=== PATIENT | male | born 1995 | race Caucasian/White ===

== ENCOUNTER 2017-09-16 16:16 | Emergency (ER) | payer BC, OTHER ==
[2017-09-16 16:36] VITALS: BP 132/82; PULSE 77; TEMP 98.2; BMI 29.0
--- NOTE | 2017-09-16 16:44 | PDOC ---
History of Present Illness - General History Source: Patient Exam Limitations: No Limitations - History of Present Illness Initial Comments: 09/16/17 16:49 The patient is a 21 year old male, left hand dominant, with no significant past medical history who presents to the ED for evaluation of left wrist pain s/p hitting the back of his left hand on a wall while "swatting a bug" about 20 days ago. The patient states he initially thought his wrist was just sore, however, has been unable to lift +3lbs in his left hand without exacerbating his left wrist pain. The patient reports the pain to his distal ulnar region with radiation to the "middle" of the dorsum fo left hand. He reports turning his left wrist outward (supination), as well as left wrist flexion, exacerbates his pain and describes this pain as "burning in the wrist." He denies any swelling or bruising following the injury. Allergies: NKDA <Naz Lopez - Last Filed: 09/16/17 16:57> <Santiago Ross - Last Filed: 09/16/17 17:29> - General Chief Complaint: Injury Stated Complaint: LEFT WRIST INJURY Time Seen by Provider: 09/16/17 16:43 Past History <Naz Lopez - Last Filed: 09/16/17 16:57> - Past Medical History COPD: No Psychiatric Problems: Yes (ANXIETY) - Immunization History Immunization Up to Date: Yes - Suicide/Smoking/Psychosocial Hx Smoking History: Never smoked Have you smoked in the past 12 months: No Information on smoking cessation initiated: No Hx Alcohol Use: Yes (RARE) Drug/Substance Use Hx: Yes (MARIJUANA) Substance Use Type: Alcohol, Marijuana <Santiago Ross - Last Filed: 09/16/17 17:29> - Past Medical History Allergies/Adverse Reactions: Allergies Allergy/AdvReac Type Severity Reaction Status Date / Time No Known Allergies Allergy Verified 09/16/17 16:17 Home Medications: Ambulatory Orders Escitalopram Oxalate [Lexapro -] 10 mg PO DAILY 09/16/17 Review of Systems - Review of Systems Able to Perform ROS?: Yes Is the patient limited [place] proficient: No Constitutional: No: Chills, Fever, Weakness Musculoskeletal: Yes: Joint Pain (left wrist pain). No: Back Pain, Joint Swelling, Joint Stiffness Integumentary: No: Bruising, Erythema, Lesions, Rash Neurological: No: Numbness, Paresthesia, Tingling, Weakness All Other Systems: Reviewed and Negative <Naz Lopez - Last Filed: 09/16/17 16:57> *Physical Exam - Vital Signs Last Vital Signs Temp Pulse Resp BP Pulse Ox 98.2 F 77 16 132/82 99 09/16/17 16:17 09/16/17 16:17 09/16/17 16:17 09/16/17 16:17 09/16/17 16:17 - Physical Exam Comments: 09/16/17 16:57 GENERAL: Well developed, well nourished. Awake and alert x3 . No acute distress. HEENT: Normocephalic, atraumatic. PERRLA, EOMI. No conjunctival pallor. Sclera are non- icteric. Moist mucous membranes. Oropharynx is clear. NECK: Supple. Full ROM. No JVD. Carotid pulses 2+ and symmetric, without bruits. No thyromegaly. No lymphadenopathy. MUSCULOSKELETAL (+) left wrist tenderness. Normal range of motion at all joints. No bony deformities. No CVA tenderness. EXTREMITIES: (+) LUE: Pulses full and symmetric, good cap refill, no deficits, no snuffbox tenderness, +mild ttp over left distal ulna and lateral aspect of left distal radius, no swelling, erythema, or increased warmth. No ecchymosis. +left wrist pain is aggravated with flexion and supination of the left wrist joint. No cyanosis. No clubbing. No edema. No calf tenderness. SKIN: Warm and dry. Normal capillary refill. No rashes. No jaundice. NEUROLOGICAL: Alert, awake, appropriate. Cranial nerves 2-12 intact. No motor deficits in the upper extremities and lower extremities. Normoreflexic in the upper and lower extremities. Normal speech. Gait is normal without ataxia. PSYCHIATRIC: Cooperative. Good eye contact. Appropriate mood and affect. <Naz Lopez - Last Filed: 09/16/17 16:57> - Vital Signs Last Vital Signs Temp Pulse Resp BP Pulse Ox 98.2 F 77 16 132/82 99 09/16/17 16:17 09/16/17 16:17 09/16/17 16:17 09/16/17 16:17 09/16/17 16:17 <Santiago Ross - Last Filed: 09/16/17 17:29> *DC/Admit/Observation/Transfer - Attestations Scribe Attestion: 09/16/17 16:56 Documentation prepared by Naz Lopez, acting as pediatric medical assistant for Santiago Jones MD <Naz Lopez - Last Filed: 09/16/17 16:57> - Discharge Dispostion Admit: No <Santiago Ross - Last Filed: 09/16/17 17:29> Diagnosis at time of Disposition: Wrist sprain Qualifiers: Encounter type: initial encounter Laterality: left Qualified Code(s): S63.502A - Unspecified sprain of left wrist, initial encounter - Discharge Dispostion Disposition: HOME Condition at time of disposition: Improved - Referrals Referrals: Jayce Winchester MD [Staff Physician] - 1 week - Patient Instructions Printed Discharge Instructions: DI for Wrist Sprain Additional Instructions: Rest ice and elevation Advil or Motrin. Use Velcro splint as directed at night while asleep and during the day when convenient. Consider seeing an orthopedist for further evaluation and treatment , as well as possible physical therapy prescription.
== END 2017-09-16 17:35 | disposition home or self-care (01) ==
LOC: FER 16:16
DX: S63.502A Unspecified sprain of left wrist, initial encounter (principal); W22.8XXA Striking against or struck by other objects, initial encounter; Y93.89 Activity, other specified; Y92.410 Unspecified street and highway as the place of occurrence of the external cause
CPT/HCPCS: 73110-TC-LT; 99281-25

== ENCOUNTER 2018-08-08 10:31 | Emergency (ER) | payer BC, OTHER ==
[2018-08-08 10:45] VITALS: TEMP 99; BMI 32.7
[2018-08-08 10:52] LABS: PH,URINE 5.5 (4.5-8); URINE APPEARANCE Clear; URINE BILIRUBIN 1+ (NEGATIVE); URINE COLOR Yellow; URINE GLUCOSE (UA) Negative (NEGATIVE); URINE KETONE Negative (NEGATIVE); URINE LEUK ESTERASE Negative (NEGATIVE); URINE NITRITE Negative (NEGATIVE); URINE PROTEIN 1+ (NEGATIVE); URINE UROBILINOGEN 0.2 (0.2-1.0)
[2018-08-08] MEDS ORDERED: ACETAMINOPHEN 1000 MG/100 ML VIAL (NON FORMULARY) IVPB ONE (11:16)
[2018-08-08] MEDS ORDERED: SODIUM CHLORIDE 1,000 ML IV STA (11:16)
--- NOTE | 2018-08-08 11:20 | PDOC ---
History of Present Illness - General Chief Complaint: Pain Stated Complaint: RIGHT ABD PAIN Time Seen by Provider: 08/08/18 10:40 - History of Present Illness Initial Comments: 08/08/18 11:16 22 M with no significant PMH presents to ED with RLQ pain. Pt states that he first noticed it last weekend. Was not doing anything at the time. The next day , he was helping someone push a heavy object and felt the pain worsen. He denies seeing or feeling any protruding masses in his abdomen. Denies N/V. Pt states that the pain has been constant since then. Denies any radiation of the pain to his groin or back. Denies F/C. No dysuria or hematuria. No scrotal pain. Past History - Past Medical History Allergies/Adverse Reactions: Allergies Allergy/AdvReac Type Severity Reaction Status Date / Time No Known Allergies Allergy Verified 08/08/18 10:39 Home Medications: Ambulatory Orders NK [No Known Home Medication] 08/08/18 COPD: No Psychiatric Problems: Yes (ANXIETY) - Immunization History Immunization Up to Date: Yes - Suicide/Smoking/Psychosocial Hx Smoking History: Never smoked Have you smoked in the past 12 months: No Hx Alcohol Use: Yes (OCCASIONAL) Drug/Substance Use Hx: Yes (MARIJUANA) Substance Use Type: Alcohol, Marijuana Review of Systems - Review of Systems Comments:: 08/08/18 11:18 GENERAL/CONSTITUTIONAL: No fever or chills. No weakness. HEAD, EYES, EARS, NOSE AND THROAT: No change in vision. No ear pain or discharge. No sore throat. CARDIOVASCULAR: No chest pain, no shortness of breath, no loss of consciousness RESPIRATORY: No cough, wheezing, or hemoptysis. GASTROINTESTINAL: + RLQ pain, No nausea, vomiting, diarrhea or constipation. GENITOURINARY: No dysuria, frequency, or change in urination. MUSCULOSKELETAL: No joint or muscle swelling or pain. No neck or back pain. SKIN: No rash NEUROLOGIC: No vertigo, no change in strength/sensation. ENDOCRINE: No increased thirst. No abnormal weight change. HEMATOLOGIC/LYMPHATIC: No anemia, easy bleeding, or history of blood clots. ALLERGIC/IMMUNOLOGIC: No hives or skin allergy. *Physical Exam - Vital Signs Last Vital Signs Temp Pulse Resp BP Pulse Ox 99.0 F 80 16 132/90 99 08/08/18 10:39 08/08/18 10:39 08/08/18 10:39 08/08/18 10:39 08/08/18 10:39 - Physical Exam Comments: 08/08/18 11:19 GENERAL: Awake, alert, and fully oriented, in no acute distress. HEAD: No signs of trauma EYES: PERRLA, EOMI, sclera anicteric, conjunctiva clear ENT: Auricles normal inspection, hearing grossly normal, nares patent, oropharynx clear without exudates. Moist mucosa NECK: Nontender, no stepoffs, Normal ROM, supple, no lymphadenopathy, JVD, or masses LUNGS: Breath sounds equal, clear to auscultation bilaterally. No wheezes, and no crackles HEART: Regular rate and rhythm, normal S1 and S2, no murmurs, rubs or gallops ABDOMEN: Soft, nontender, normoactive bowel sounds. No guarding, no rebound. No masses : Normal scrotum, no masses, no tenderness, normal lay, normal cremasteric reflex EXTREMITIES: Normal range of motion, no edema. No clubbing or cyanosis. No cords, erythema, or tenderness NEUROLOGICAL: Cranial nerves II through XII intact. 5/5 strength and sensation in all extremities, Normal speech, normal gait, normal cerebellar function SKIN: Warm, Dry, normal turgor, no rashes or lesions noted. ED Treatment Course - LABORATORY CBC & Chemistry Diagram: 08/08/18 11:35 08/08/18 11:35 - ADDITIONAL ORDERS Additional order review: Laboratory Results 08/08/18 10:45 Urine Color Yellow Urine Appearance Clear Urine pH 5.5 Ur Specific [place] 1.025 Urine Protein 1+ H Urine Glucose (UA) Negative Urine Ketones Negative Urine Blood Trace-intact H Urine Nitrite Negative Urine Bilirubin 1+ H Urine Urobilinogen 0.2 Ur Leukocyte Esterase Negative - RADIOLOGY Radiology Studies Ordered: Category Date Time Status ABDOMEN & PELVIS CT WITH CONTR [CT] Stat CT Scan 08/08/18 11:15 Ordered Medical Decision Making - Medical Decision Making 08/08/18 11:19 22 M with RLQ pain x 6 days. Abdomen is benign on exam but given location of pain, will r/o appy. Pt with no evidence of torsion on exam. No palpable inguinal or abdominal hernias. Also consider kidney stone, though no CVAT on exam and no flank pain reported. - Labs, UA - CTAP 08/08/18 14:31 Labs notable for elevated lipase, otherwise normal. CT unremarkable. Pt reassessed - has no epigastric tenderness or pain. Has not vomited. PO challenged in ED with apple sauce and water, which pt tolerated well. Denies any change in his pain. No nausea/vomiting. I have low suspicion that pt is having acute pancreatitis flare. It is possible he had pancreatitis when pain initially began, but he is now tolerating PO, with no abdominal tenderness. Pt is well appearing, with normal vitals. Clinically stable for DC at this time. I discussed the physical exam findings, ancillary test results and final diagnoses with the patient. I answered all of the patient's questions. The patient was satisfied with the care received and felt comfortable with the discharge plan and treatment plan. The patient agrees to follow up with the primary care physician within 24-72 hours. *DC/Admit/Observation/Transfer Diagnosis at time of Disposition: Abdominal pain - Discharge Dispostion Disposition: HOME Condition at time of disposition: Good - Referrals Referrals: Timoteo Mann MD [Primary Care Provider] - Frank Hernandez MD [Staff Physician] - - Patient Instructions Printed Discharge Instructions: DI for Abdominal Pain-Adult, DI for Pancreatitis Additional Instructions: Your CT scan today was normal. However, your bloodwork showed that you have an elevated "lipase", which can be a sign of a condition called pancreatitis. However, because you are able to eat and drink without pain or vomiting, this is likely not what you have. Have your primary care doctor re-check your lipase level within the next 2 weeks. Call the number provided to make an appointment with a GI doctor. If you experience any worsening pain, fevers, vomiting, or any other concerning symptoms, return to the ER immediately. - Post Discharge Activity - Attestations Physician Attestion: 08/08/18 14:35 I, Dr. Jayce Phipps MD, attest that this document has been prepared under my direction and personally reviewed by me in its entirety. I further attest, that it accurately reflects all work, treatment, procedures and medical decision -making performed by me.
[2018-08-08 11:29] LABS: EPI CELLS FEW /HPF; URINE MUCUS 1+; URINE RBC 0-2 /hpf (0-3); URINE WBC 0-2 (0-2)
[2018-08-08] MEDS ORDERED: ACETAMINOPHEN INJECTION 100 ML IVPB ONE (11:46)
[2018-08-08 12:01] LABS: BASO % 0.5 % (0-2.0); EOS % 0.5 % (0-4.5); HEMATOCRIT 47.9 % (35.4-49); LYMPH % 12.7 % (8-40); MCH 29.9 pg (25.7-33.7); MCHC 33.4 g/dl (32.0-35.9); MEAN CELL VOLUME 89.6 fl (80-96); MEAN PLT VOLUME 9.2 fl (7.5-11.1); MONO % 6.1 % (3.8-10.2); NEUT % 80.2 % (42.8-82.8); PLATELET COUNT 269 K/MM3 (134-434); RBC 5.34 M/mm3 (4.00-5.60); RDW 12.7 % (11.9-15.9); WHITE BLOOD COUNT 9.5 K/mm3 (4.0-10.8)
[2018-08-08 12:22] LABS: ANION GAP 11 MMOL/L (8-16); BLOOD UREA NITROGEN 18 mg/dl (7-18); CHLORIDE 103 mmol/L (98-107); CO2 24 mmol/L (22-28); CREATININE 1.1 mg/dl (0.6-1.3); GLUCOSE,RANDOM 107 mg/dl (74-106); POTASSIUM 4.1 mmol/L (3.5-5.1); SODIUM 138 mmol/L (136-145)
[2018-08-08 12:23] LABS: ALBUMIN 4.3 g/dl (3.5-5.0); ALK PHOS 71 U/L (32-92); BILIRUBIN,TOTAL 0.9 mg/dl (0.2-1.0); CALCIUM 9.1 mg/dl (8.4-10.2); SGOT/AST 20 U/L (10-42); SGPT/ALT 40 U/L (10-40); TOT PROT 7.2 g/dl (6.4-8.3)
[2018-08-08 13:14] LABS: LIPASE 1680 U/L (73-393)
[2018-08-08 13:46] VITALS: BP 132/84; PULSE 62
== END 2018-08-08 14:41 | disposition home or self-care (01) ==
LOC: FER 10:31
PROC: 3E033NZ Introduction of Analgesics, Hypnotics, Sedatives into Peripheral Vein, Percutaneous Approach (ICD-10-PCS; principal; 2018-08-08)
PROC: 3E0337Z Introduction of Electrolytic and Water Balance Substance into Peripheral Vein, Percutaneous Approach (ICD-10-PCS; 2018-08-08)
DX: R10.31 Right lower quadrant pain (principal)
CPT/HCPCS: 36415; 74177-TC; 80053; 81003; 81015; 83690; 85025; 99283-25; J0131; J7030

== ENCOUNTER 2018-08-15 13:05 | Emergency (ER) | payer BC, OTHER ==
--- NOTE | 2018-08-15 13:07 | PDOC ---
History of Present Illness - General Chief Complaint: Pain, Acute Stated Complaint: RT TESTICULAR PAIN Time Seen by Provider: 08/15/18 13:07 - History of Present Illness Initial Comments: 08/15/18 13:24 The patient is a 22 year old male with a history of anxiety who presents for evaluation of testicular pain. The patient reports right testicular pain that he describes as a pressure that began earlier today. He presented to an outside urgent care who referred the patient to the ED for further evaluation. The patient denies similar symptoms in the past and denies any history of STIs, pain with urination, or urinary discharge. He reports that he is sexually active although not recently. He reports some subjective fevers over the past few days, but otherwise denies chills, SOB, chest pain, nausea, vomiting, abdominal pain, or changes with bowel movements. Past History - Past Medical History Allergies/Adverse Reactions: Allergies Allergy/AdvReac Type Severity Reaction Status Date / Time No Known Allergies Allergy Verified 08/15/18 13:06 Home Medications: Ambulatory Orders Acid Reflux Medication 1 tab PO ASDIR 08/15/18 Antibiotic #2 1 tab PO ASDIR 08/15/18 Ciprofloxacin HCl [Cipro] mg PO ASDIR 08/15/18 COPD: No Psychiatric Problems: Yes (ANXIETY) - Immunization History Immunization Up to Date: Yes - Suicide/Smoking/Psychosocial Hx Smoking History: Never smoked Have you smoked in the past 12 months: No Hx Alcohol Use: Yes (OCCASIONAL) Drug/Substance Use Hx: Yes (MARIJUANA) Substance Use Type: Alcohol, Marijuana Review of Systems - Review of Systems Comments:: 08/15/18 13:26 Constitutional: Subjective Fevers. No chills, fatigue, malaise HEENT: No Rhinorrhea, nasal congestion, visual changes Cardiovascular: No chest pain, syncope, palpitations, lightheadedness Respiratory: No Cough, SOB, Hemoptysis, Gastrointestinal: No Abdominal pain, Nausea, Vomiting, Constipation, Diarrhea, Melena Genitourinary: Right testicular pain. No Dysuria, Frequency, Urgency, Hesitancy , Hematuria, Flank pain Musculoskeletal: No Myalgia, arthralgia Skin: No rashes, itching, bruising, pallor Neurologic: No Headache, Dizziness, Numbness, Weakness, or Tingling Psychiatric: No Hallucinations. No SI or HI *Physical Exam - Physical Exam Comments: 08/15/18 13:27 General Appearance: Nourished. No Apparent Distress HEENT: No Pharyngeal Erythema, Tonsillar Exudate, Tonsillar Erythema Neck: No Cervical Lymphadenopathy Respiratory/Chest: Lungs Clear, Normal Breath Sounds. No Crackles, Rales, Rhonchi, Wheezing Cardiovascular: Regular Rhythm, Regular Rate. No Murmur, Gallops, Rubs Gastrointestinal/Abdominal: Normal Bowel Sounds, Soft. No Guarding, Rebound, Tenderness Genital Exam: Normal Glans, No discharge noted. No Masses. No Hernia Noted. Mild tenderness to palpation at the right epidydimus. Normal Cremaster reflex. Extremity: Normal Capillary Refill Integumentary: Normal Color, Dry, Warm Neurologic: Fully Oriented, Alert, Normal Mood/Affect, Normal Response, Medical Decision Making - Medical Decision Making 08/15/18 13:29 The patient is a 22 year old male with a history of anxiety who presents for evaluation of testicular pain. Differential includes but is not limited to: UTI , Epididymitis, Torsion, Infectious. Given the patient's history and physical exam, it is likely his symptoms are due to an epididymitis. However, we will obtain a ua, g/c amp, urine culture, and scrotal US to evaluate further. We will continue to monitor and reassess while here in the ED. 08/15/18 18:37 UA is not consistent with a UTI. Scrotal US is unremarkable as read by our radiologist. The patient continues to appear well on exam. We are comfortable discharging the patient home with urology follow up. We discussed the results, plan, and return precautions with the patient who voiced understanding and is agreeable with the plan. *DC/Admit/Observation/Transfer Diagnosis at time of Disposition: Testicular pain, right - Discharge Dispostion Disposition: HOME Condition at time of disposition: Stable - Referrals Referrals: Timoteo Mann MD [Primary Care Provider] - Lupillo Joseph MD [Staff Physician] - - Patient Instructions Printed Discharge Instructions: DI for Testicular Pain Additional Instructions: Please return to the ER if you experience concerning or worsening symptoms including worsening difficulty breathing, weakness, or chest pain, vomiting, abdominal pain. Your urine results and ultrasound results were normal here in the ER. Please call to schedule a follow up appointment with our Urologist within 2-3 days to discuss your ER visit and further management of your symptoms. - Post Discharge Activity
--- NOTE | 2018-08-15 13:08 | PDOC ---
Attending Attestation - Resident Resident Name: Elvis Alanis - ED Attending Attestation I have performed the following: I have examined & evaluated the patient, The case was reviewed & discussed with the resident, I agree w/resident's findings & plan - HPI HPI: 08/15/18 13:35 22 y/o male with right testicular pain since this morning. Seen here last week for abdominal pain and had a negative CT scan. No dysuria, discharge, fever or chills. Scheduled for colonoscopy tomorrow. No N/V/V/D. Denies hematuria or back pain. Sent from urgent care for further evaluation of torsion. - Physicial Exam PE: 08/15/18 13:38 VS stable HEENT: unremarkable Heart: RRR without murmur Lungs CTA b/l, no wheezing Abdomen: soft nontender +BS : performed by resident Alanis, no masses, slight tenderness to right epidydimus Ext: no CCE Neuro: grossly intact no focal deficits noted - Medical Decision Making 08/15/18 15:25 US scrotum: negative 08/15/18 15:25 Results discussed with pt, will follow up with Urologist No torsion, scheduled for colonoscopy tomorrow If worsen return to ER case discussed with Dr. Alanis and agreement with plan 08/15/18 15:26 Final Dx: right testicular pain
[2018-08-15 13:11] VITALS: BP 150/85; PULSE 69; TEMP 98.1; BMI 31.6
[2018-08-15 13:46] LABS: URINE APPEARANCE Clear; URINE BILIRUBIN 1+ (NEGATIVE); URINE COLOR Yellow; URINE GLUCOSE (UA) Negative (NEGATIVE); URINE KETONE 1+ (NEGATIVE); URINE LEUK ESTERASE TRACE (NEGATIVE); URINE NITRITE Negative (NEGATIVE); URINE PROTEIN 1+ (NEGATIVE); URINE UROBILINOGEN 0.2 (0.2-1.0)
[2018-08-15 13:58] LABS: AMORP URATES NONE SEEN /hpf (NONE SEEN); EPI CELLS FEW /HPF; URINE BACTERIA 1+ /hpf (NEGATIVE); URINE RBC 0-2 /hpf (0-3)
== END 2018-08-15 15:28 | disposition home or self-care (01) ==
LOC: FER 13:05
DX: N50.811 Right testicular pain (principal); F41.9 Anxiety disorder, unspecified
CPT/HCPCS: 36415; 76870-TC; 81003; 81015; 87086; 87491; 87591; 99283-25

== ENCOUNTER 2018-09-22 10:02 | Emergency (ER) | payer BC, OTHER ==
--- NOTE | 2018-09-22 10:20 | PDOC ---
History of Present Illness <Katya Rodríguez - Last Filed: 09/22/18 14:17> - General History Source: Patient, Parent(s) (Mother present at bedside for part of interview. Excused for period.) Exam Limitations: No Limitations - History of Present Illness Initial Comments: HPI: 22 y/o male presenting to [facility] complaining of increased anxiety, worsening depression, difficulty sleeping, and concern about recent diagnosis of high cholesterol. Accompanied by mother. Pt reports he has a long history of anxiety , depression, illness anxiety, and possibly OCD. Grandfather recently . PCP called last evening to say his cholesterol was high and he should start a statin , which was extremely concerning to pt. Mother and pt state his symptoms of depression, decreased energy, intrusive thoughts, anhedonia, and difficulty sleeping have been acutely worsening over the past two weeks. Denies periods of increased energy or restlessness. Was started on Zoloft (50mg) 6 days ago by PCP. Follows with a psychologist, last visit one week ago. Unable to reach out to her because she is on vacation. Has previously been followed by psychiatry over a year ago. Never been hospitalized for psychiatric concerns. Denies SI or HI. No firearms or other weapons in house. Feels safe at home. Endorses familial history of schizophrenia in maternal grandmother and paternal cousin. Denies present or h/o AH or VH. Denies outstanding legal matters, debts, or gambling problems. PCP: Dr. Mann Psychologist: Dr. Up <Brady Díaz - Last Filed: 09/22/18 18:21> - General Chief Complaint: Psychiatric Stated Complaint: anxiety Time Seen by Provider: 09/22/18 10:07 Past History <Katya Rodríguez - Last Filed: 09/22/18 14:17> - Past Medical History COPD: No Psychiatric Problems: Yes (ANXIETY) - Immunization History Immunization Up to Date: Yes - Suicide/Smoking/Psychosocial Hx Smoking History: Never smoked Have you smoked in the past 12 months: No Hx Alcohol Use: Yes (OCCASIONAL) Drug/Substance Use Hx: Yes (MARIJUANA) Substance Use Type: Alcohol, Marijuana <Brady Díaz - Last Filed: 09/22/18 18:21> - Past Medical History Allergies/Adverse Reactions: Allergies Allergy/AdvReac Type Severity Reaction Status Date / Time No Known Allergies Allergy Verified 08/15/18 13:06 Home Medications: Ambulatory Orders Sertraline HCl [Zoloft -] 50 mg PO DAILY 09/22/18 Review of Systems - Review of Systems Able to Perform ROS?: Yes Constitutional: No: Fever HEENTM: No: Difficulty Swallowing Respiratory: No: Cough Cardiac (ROS): No: Syncope ABD/GI: Yes: Poor Appetite. No: Difficulty Swallowing Musculoskeletal: No: Muscle Pain Integumentary: No: Rash Neurological: No: Seizure Psychiatric: Yes: Anxiety, Depression, Frequent Crying, Stressors, Sleep Pattern Change, Emotional Problems, Change in Appetite Hematologic/Lymphatic: No: Easy Bleeding All Other Systems: Reviewed and Negative <Brady Díaz - Last Filed: 09/22/18 18:21> *Physical Exam - Vital Signs Last Vital Signs Temp Pulse Resp BP Pulse Ox 99 F 62 20 118/82 96 09/22/18 10:02 09/22/18 10:02 09/22/18 10:02 09/22/18 10:02 09/22/18 10:02 <Katya Rodríguez - Last Filed: 09/22/18 14:17> - Physical Exam Comments: Constitutional: Well-developed, well-nourished male in no acute distress or obvious discomfort. Found sitting upright on edge of hospital bed. Alert and oriented x4. Answered all questions appropriately and completely. Speech was non -labored, non-pressured. Head: Normocephalic. No obvious external signs of trauma. Eyes: Sclerae white. EARS: Hearing grossly intact. NOSE: No nasal discharge. Neck: Supple, trachea is midline. Cardiovascular: Regular rate and regular rhythm. No murmur, rubs, clicks, or gallops. Peripheral pulses: Radial pulses full. Respiratory: Breathing unlabored. Equal chest rise and fall. Clear to auscultation bilaterally. No stridor, no wheezing, no rhonchi. Neuro: Alert and oriented. Moving all four extremities spontaneously. Gait normal. Skin: Warm, dry, and intact. Psych: Affect: depressed with downward gaze. Would maintain eye contact. Tearful at periods. Voice of normal krista without pressure. Dressed and groomed appropriately. <Brady Díaz - Last Filed: 09/22/18 18:21> Moderate Sedation - Procedure Monitoring Vital Signs: Procedure Monitoring Vital Signs Temperature 99 F 09/22/18 10:02 Pulse Rate 62 09/22/18 10:02 Respiratory Rate 20 09/22/18 10:02 Blood Pressure 118/82 09/22/18 10:02 O2 Sat by Pulse Oximetry (%) 96 09/22/18 10:02 <Katya Rodríguez - Last Filed: 09/22/18 14:17> ED Treatment Course - ADDITIONAL ORDERS Additional order review: Laboratory Results 09/22/18 11:02 Opiates Screen Negative Methadone Screen Negative Barbiturate Screen Negative Phencyclidine Screen Negative Ur Amphetamines Screen Negative MDMA (Ecstasy) Screen Negative Benzodiazepines Screen Negative Cocaine Screen Negative U Marijuana (THC) Screen Positive A* - Medications Given in the ED: ED Medications Discontinued Medications Generic Name Dose Route Start Last Admin Trade Name Freq PRN Reason Stop Dose Admin Alprazolam 1 mg 09/22/18 10:37 09/22/18 10:48 Xanax PO 1 mg ONCE PRN Administration ANXIETY <Katya Rodríguez - Last Filed: 09/22/18 14:17> Medical Decision Making - Medical Decision Making *Reviewed vital signs, nursing notes, and prior visit documentation (if available). 22 y/o male presenting with acute worsening of chronic anxiety, depression, and illness anxiety symptoms in setting of recent familial and diagnosis of high cholesterol. No SI or HI. No manic or schizophrenic symptoms endorsed. Established longterm care with psychologist. Pt given PO benzo. Low suspicion for acute life threat or psychiatric emergency requiring hospitalization. Will attempt to contact psychologist and/or PCP to insure close follow up. 11:32 Called PCPs office. Left message requesting call back with office coordinator receptionist. Awaiting call back. 12:03 ED Attending consulted with pts psychologist, Dr. Rivera. Recommendations listed in attendings note. 12:15 Second call to PCPs office. Awaiting call back. ED attending discussed discharged and follow up instructions with pt and mother. Provided return precautions. <Brady Díaz - Last Filed: 09/22/18 18:21> *DC/Admit/Observation/Transfer <Katya Rodríguez - Last Filed: 09/22/18 14:17> - Discharge Dispostion Decision to Admit order: No <Brady Díaz - Last Filed: 09/22/18 18:21> Diagnosis at time of Disposition: Anxiety - Discharge Dispostion Disposition: HOME Condition at time of disposition: Stable - Referrals Referrals: Christiano Joel MD [Staff Physician] - Timoteo Mann MD [Primary Care Provider] - Pawel Pereira [Non Staff, Medical] - - Patient Instructions Printed Discharge Instructions: Generalized Anxiety Disorder Additional Instructions: you should follow up with your psychologist as scheduled for September 29 , if you have thoughts of self harm or harm to others you should return to emergency room immediately, or seek emergency psychiatric evaluation at emergency department with onsite psychiatry as discussed. you should continue taking your sertraline as prescribed by your primary doctor. return for any problems or concerns.
[2018-09-22 10:30] VITALS: BP 118/82; PULSE 62; TEMP 99; BMI 29.7
[2018-09-22] MEDS ORDERED: ALPRAZolam 1 MG TABLET PO PRN (10:37)
[2018-09-22] MEDS ORDERED: ALPRAZolam 0.25 MG TABLET ONE (10:47)
--- NOTE | 2018-09-22 11:10 | PDOC ---
Attending Attestation - Resident Resident Name: Brady Díaz - ED Attending Attestation I have performed the following: I have examined & evaluated the patient, The case was reviewed & discussed with the resident, I agree w/resident's findings & plan, Exceptions are as noted - HPI HPI: 09/22/18 11:06 22-year-old male with a history of OCD anxiety and depression here today with complaints of worsening anxiety. Patient presents with his mother. States that he has had several stressful events and his family due to some sick family members. Also recently found out that he has high cholesterol after receiving a call from his primary doctor in the night previous. Patient states since then he has had difficulty sleeping has anxiety related to his high cholesterol he is currently taking sertraline which was started one week ago by his primary care doctor in addition he does follow with a psychologist whom he saw one week ago. He has appointment scheduled with his psychologist on September 29 7 days from today. Denies feelings of self-harm dots of or hallucinations. His mother states that he feels the patient is safe at home just thought that he was having worsening anxiety and was hoping that he could speak to a psychiatrist did not know where else to go she called her friend who told her to come to the emergency room. Patient denies any associated drug use did recently have blood work done by his primary care doctor - Physicial Exam PE: 09/22/18 11:07 Awake alert anxious anxious appearing Fidgeting while speaking. Lungs are clear bilaterally heart is regular without any murmurs rubs or gallops abdomen is soft and nontender extremities are warm and well-perfused no edema psychiatric the patient is anxious denies suicidal or homicidal ideations. Is c cooperative speech is clear not pressured Good eye contact no auditory or visual hallucinations skin is warm and dry - Medical Decision Making 09/22/18 11:08 22-year-old male with worsening anxiety. Plan EKG patient recently had blood work done therefore screening labs are not necessary. We will obtain a U tox to rule out associated drug side effects will likely given anxiolytic here in the ED. We'll try to contact the patient's psychologist and her primary care doctor for closer follow-up however the patient does have follow-up with psychologist within one week. We'll also provide the patient with a referral to Dr. Oden through a psychiatrist instructed to return back to the ED for thoughts of self- harm any concerns for others. or for patient safety or any concerns 09/22/18 12:02 left message for pt psychiatrist. [phone] . call pcp awaiting call back dr. Cardenas. psychologist dr. Arellano. dw dr arellano, states pt has a psychiatrist he can follow up with in october with Dr Pereira who he has seen many months ago, who will be back from vacation in october. psychologist has been in communiation with primary who has agreed to prescribe the psych meds until he can follow up with dr. pereira. Heart Score/ECG Review #1 General ECG Interpretation: Sinus Rhythm, Normal Intervals, No acute ischemic changes Compared to previous ECG there are: Other (sinus bradycardia)
[2018-09-22 12:55] LABS: COCAINE, UR NEGATIVE ng/ml (CUTOFF=300); METHADONE, UR NEGATIVE ng/ml (CUTOFF=300); OPIATES, URI NEGATIVE ng/ml (CUTOFF=300); PHENCYCLIDINE,URINE NEGATIVE ng/ml (CUTOFF=25); URINE AMPHETAMINES NEGATIVE ng/ml (CUTOFF=500); URINE BARBITURATES NEGATIVE ng/ml (CUTOFF=200); URINE BENZODIAZEPINES NEGATIVE ng/ml (CUTOFF=200)
--- NOTE | 2018-09-23 16:24 | EKG ---
Test Reason : Blood Pressure : / mmHG Vent. Rate : 049 BPM Atrial Rate : 049 BPM P-R Int : 126 ms QRS Dur : 090 ms QT Int : 422 ms P-R-T Axes : -02 006 -04 degrees QTc Int : 381 ms SINUS BRADYCARDIA OTHERWISE NORMAL ECG NO PREVIOUS ECGS AVAILABLE Confirmed by ETIENNE FARLEY, JONNIE ([id number]) on 09/23/2018 4:23:50 PM Referred By: LEELEE CHRISTINE Confirmed By:JONNIE CLIFTON MD
== END 2018-09-22 12:40 | disposition home or self-care (01) ==
LOC: SUPCPDRO 10:02 → FER 10:02
DX: F41.9 Anxiety disorder, unspecified (principal)
CPT/HCPCS: 80307; 93005; 99282-25

== ENCOUNTER 2019-06-01 14:42 | Emergency (ER) | payer BC, OTHER ==
[2019-06-01 14:55] VITALS: TEMP 99.2; BMI 29.5
[2019-06-01 18:00] VITALS: BP 113/72; PULSE 60
--- NOTE | 2019-06-01 18:01 | PDOC ---
Documentation entered by Isidra Denise SCRIBE, acting as scribe for Selvin Ham MD. Selvin Ham MD: This documentation has been prepared by the Howie croft Sammi, SCRIBE, under my direction and personally reviewed by me in its entirety. I confirm that the documentation accurately reflects all work, treatment, procedures, and medical decision making performed by me. History of Present Illness - General Chief Complaint: Laceration Stated Complaint: MINOR LACERATION TO BETWEEN LEFT THUMB AND INDE History Source: Patient Exam Limitations: No Limitations - History of Present Illness Initial Comments: 06/01/19 14:47 The patient is a 23 year old male who presents to the emergency department for evaluation of a laceration between the 1st and 2nd digits of his left hand. The patient states he was opening a new garden hose when he sliced his hand on the plastic handle of the box icer he was using to open it. Pt has box icer at bedside and points to blunt plastic end as what cause the laceration. He denies any other complaints. Last tdap was <5yrs ago for college. PCP: Mackenzie Denies recent fevers, chills, dizziness, cp, sob, abd pain, n/v/d, weakness/ numbness. Past History - Past Medical History Allergies/Adverse Reactions: Allergies Allergy/AdvReac Type Severity Reaction Status Date / Time No Known Allergies Allergy Verified 06/01/19 14:45 Home Medications: Ambulatory Orders Sertraline HCl [Zoloft -] 100 mg PO DAILY 09/22/18 Atorvastatin Ca [Lipitor] 10 mg PO DAILY 06/01/19 COPD: No Psychiatric Problems: Yes (ANXIETY) - Immunization History Immunization Up to Date: Yes - Suicide/Smoking/Psychosocial Hx Smoking History: Never smoked Have you smoked in the past 12 months: No Hx Alcohol Use: Yes (OCCASIONAL) Drug/Substance Use Hx: Yes (MARIJUANA) Substance Use Type: Alcohol, Marijuana Review of Systems - Review of Systems Comments:: 06/01/19 15:00 GENERAL/CONSTITUTIONAL: No fever or chills. No weakness. CARDIOVASCULAR: No chest pain or shortness of breath. RESPIRATORY: No cough, wheezing, or hemoptysis. MUSCULOSKELETAL: No joint or muscle swelling or pain. No neck or back pain. SKIN: (+)laceration between thumb and index finger of left hand. NEUROLOGIC: No headache, vertigo, loss of consciousness, or change in strength/ sensation. *Physical Exam - Vital Signs Last Vital Signs Temp Pulse Resp BP Pulse Ox 99.2 F 67 16 136/74 99 06/01/19 14:44 06/01/19 14:44 06/01/19 14:44 06/01/19 14:44 06/01/19 14:44 - Physical Exam Comments: 06/01/19 15:01 GENERAL: Awake, alert, and fully oriented, in no acute distress EYES: PERRLA, EOMI, sclera anicteric, conjunctiva clear ENT: oropharynx clear without exudates. Moist mucosa LUNGS: Breath sounds equal, clear to auscultation bilaterally. No wheezes, and no crackles HEART: Regular rate and rhythm, normal S1 and S2, no murmurs, rubs or gallops ABDOMEN: Soft, nontender, normoactive bowel sounds. No guarding, no rebound. No masses EXTREMITIES: Normal range of motion, no edema. No clubbing or cyanosis. No cords , erythema, or tenderness NEUROLOGICAL: Normal speech, cranial nerves intact, equal strength and sensation b/l SKIN: 1cm linear hemostatic laceration in web space btwn first and second digits on dorsal aspect. Proximal 0.5cm aspect of laceration a bit deeper when fingers abducted but no ligamentous exposure. Distal 0.5cm very superficial. Procedures - Laceration/Wound Repair Left Dorsal Hand Wound Length: to 2.5 cm Wound Explored: clean Wound's Depth, Shape: superficial Irrigated w/ Saline: Yes Anesthesia: 1% Lidocaine Amount of Anesthetic (ccs): 1 Wound Debrided: minimal Wound Repaired With: Sutures Suture Size/Type: 5:0, nylon Number of Sutures: 1 Layer Closure: No Sterile Dressing Applied: Yes Splint Applied: No Medical Decision Making - Medical Decision Making 06/01/19 17:46 23yo M presents with 1cm laceration, distal 0.5cm requiring single 5.0 nylon suture repair Wound irrigated, 1% lidocaine injected with good response At completion of procedure, pt became nauseous, pale, was immediately lied flat on stretcher with leg raise No LOC Pulse about 50 on check, likely vasovagal episode Improved with supine position after a few mins Rpt vitals unremarkable Pt clincally stable for DC home, to return in 10 days for suture removal or sooner if any signs of infection, which have been discussed with patient I discussed the physical exam findings, ancillary test results and final diagnoses with the patient. I answered all of the patient's questions. The patient was satisfied with the care received and felt comfortable with the discharge plan and treatment plan. The patient will call their primary care physician within 24 hours to arrange follow-up and will return to the Emergency Department with any new, persistent or worsening symptoms. *DC/Admit/Observation/Transfer Diagnosis at time of Disposition: Laceration, Hand pain, left, Hand injury - Discharge Dispostion Disposition: HOME Condition at time of disposition: Stable Decision to Admit order: No - Referrals Referrals: Timoteo Mann MD [Primary Care Provider] - - Patient Instructions Printed Discharge Instructions: DI for Laceration Repair Additional Instructions: Keep the incision clean and dry for 24 hours. After 24 hours, you may allow the soap and water to rinse off your incision. Avoid direct pressure of the water to the incision. Pat the incision dry with a clean clothe. Apply a small amount of bacitracin onto the incision. Cover the incision loosely with a bandaid. Take tylenol as needed for pain. Return to the emergency department in 10 days for removal of the stitch Return if you notice red streaks, increase redness/swelling/severe pain to the incision - Post Discharge Activity - Attestations Physician Attestion: 06/01/19 18:01 I, Dr. Selvin Ham MD, attest that this document has been prepared under my direction and personally reviewed by me in its entirety. I further attest, that it accurately reflects all work, treatment, procedures and medical decision -making performed by me.
== END 2019-06-01 18:05 | disposition home or self-care (01) ==
LOC: FER 14:42
PROC: 0HQGXZZ Repair Left Hand Skin, External Approach (ICD-10-PCS; principal; 2019-06-01)
DX: S61.412A Laceration without foreign body of left hand, initial encounter (principal); W26.0XXA Contact with knife, initial encounter; Y93.89 Activity, other specified; Y92.89 Other specified places as the place of occurrence of the external cause; F41.9 Anxiety disorder, unspecified
CPT/HCPCS: 99282-25

== ENCOUNTER 2025-02-07 08:34 | Emergency (ER) | payer BC, OTHER ==
[2025-02-07 08:47] VITALS: BP 114/81; PULSE 58; RESP 20; TEMP 98.8; BMI 31.4
== END 2025-02-07 09:24 | disposition home or self-care (01) ==
LOC: FER 08:34
DX: K92.1 Melena (principal); R19.7 Diarrhea, unspecified
CPT/HCPCS: 99283-25

== ENCOUNTER 2025-06-25 19:50 | Emergency (ER) | payer OTHER ==
[2025-06-25] MEDS ORDERED: AMOX TR/POT CLAV 875MG/125MG TABLETS (FP) ONE (20:06)
[2025-06-25] MEDS: AMOX TR/POT CLAV 875MG/125MG TABLETS (FP) PO ONE (20:06)
[2025-06-25] MEDS ORDERED: DIPHTH,PERTUSS(ACELL),TET 0.5 ML DISP.SYRIN IM ONE (20:07)
[2025-06-25 20:12] VITALS: BP 127/88; PULSE 77; RESP 18; TEMP 98.3; BMI 33.0
[2025-06-25] MEDS: DIPHTH,PERTUSS(ACELL),TET 0.5 ML DISP.SYRIN IM ONE (20:12)
== END 2025-06-25 20:22 | disposition home or self-care (01) ==
LOC: FER 19:50
PROC: 3E0234Z Introduction of Serum, Toxoid and Vaccine into Muscle, Percutaneous Approach (ICD-10-PCS; principal; 2025-06-25)
DX: S61.452A Open bite of left hand, initial encounter (principal); S61.552A Open bite of left wrist, initial encounter; Z23 Encounter for immunization; W55.01XA Bitten by cat, initial encounter
CPT/HCPCS: 90471; 90715; 99284-25